=== PATIENT | female | born 1945 | race Hispanic/Latino ===

== ENCOUNTER 2016-09-15 15:06 | Observation (INO) | payer MEDICARE, BC ==
[2016-09-15 15:19] VITALS: BMI 23.8
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
[2016-09-15] MEDS ORDERED: Sodium Chloride 0.9% 1,000 ML IV STA (16:12)
[2016-09-15 17:11] LABS: ADD MANUAL DIFF? NO
[2016-09-15 17:20] LABS: BASO # 0.05 K/mm3 (0.0-2.0); EOS # 0.1 (0.0-0.7); EOS % 1.8 % (1.5-5.0); GRAN # 3.16 (1.4-6.5); HEMATOCRIT 42.1 % (36.0-48.0); LYMPH # 1.4 (1.2-3.4); LYMPH % 27.7 % (22.0-35.0); MEAN CELL VOLUME 91.5 fL (80.0-105.0); MEAN CORPUSCULAR HEMOGLOBIN 31.7 pg (25.0-35.0); MEAN CORPUSCULAR HGB CONC 34.7 g/dl (31.0-37.0); MEAN PLATELET VOLUME 9.4 fl (7.0-11.0); MONO # 0.4 (0.1-0.6); MONO % 7.5 % (1.0-6.0); PLATELET COUNT 330 10^3/uL (120.0-450.0); RED CELL DISTRIBUTION WIDTH 12.8 % (11.5-14.5); WHITE BLOOD COUNT 5.1 10^3/ul (4.5-11.0)
[2016-09-15 17:24] LABS: ALB/GLOB RATIO 1.5 (1.1-1.8); ALKALINE PHOSPHATASE 82 U/L (38-133); ALT/SGPT 37 U/L (7-56); AST/SGOT 28 U/L (15-39); BILIRUBIN,TOTAL 0.7 mg/dL (0.2-1.3); BLOOD UREA NITROGEN 12 mg/dL (7-21); CARBON DIOXIDE 29 mmol/L (21-33); CHLORIDE 106 mmol/L (98-107); GFR AFRICAN-AMERICAN > 60; GLUCOSE,RANDOM 137 mg/dL (70-110); POTASSIUM 4.6 mmol/L (3.6-5.0); SODIUM 143 mmol/L (132-148); TOTAL PROTEIN 7.8 g/dL (5.8-8.3)
[2016-09-15 19:01] LABS: PH,URINE 6.5 (4.7-8.0); URINE APPEARANCE CLEAR (CLEAR); URINE BILIRUBIN NEGATIVE (NEGATIVE); URINE BLOOD SMALL (NEGATIVE); URINE COLOR YELLOW (YELLOW); URINE GLUCOSE (UA) NEGATIVE (NEGATIVE); URINE KETONE NEGATIVE (NEGATIVE); URINE LEUKOCYTE ESTERASE SMALL Leu/uL (NEGATIVE); URINE PROTEIN NEGATIVE mg/dL (<30 mg/dL); URINE UROBILINOGEN 0.2 E.U./dL (<1 E.U./dL)
[2016-09-15 19:10] LABS: URINE RBC 0 - 2 /hpf (0-2); URINE WBC 0 - 2 /hpf (0-6)
[2016-09-15 19:16] LABS: FREE T4 0.86 ng/dL (0.78-2.19)
[2016-09-15 19:30] LABS: THYROID STIMULATING HORMONE 1.02 mIU/mL (0.46-4.68)
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
--- NOTE | 2016-09-15 19:47 | CT ---
EXAM: CT Head Without Intravenous Contrast CLINICAL HISTORY: 71 years old, female; Pain; Headache; Headache not specified; Additional info: Dizziness TECHNIQUE: Axial computed tomography images of the head/brain without intravenous contrast. This CT exam was performed using one or more of the following dose reduction techniques: automated exposure control, adjustment of the mA and/or kV according to patient size, and/or use of iterative reconstruction technique. EXAM DATE/TIME: 09/15/2016 5:33 PM COMPARISON: Prior head CT of 06/28/2015 FINDINGS: BRAIN: Tiny foci of air seen in the brain, just above the skull base. These are most likely located in the cavernous sinuses, and related to a recent intravenous injection or peripheral IV placement. This finding is not felt to be of clinical significance. Diffuse, age-related cortical atrophy and ventriculomegaly. No significant acute abnormality identified. No acute hemorrhage seen within the brain. No acute extra-axial fluid collections visualized. No evidence of significant mass effect within the brain. VENTRICLES: See above. BONES/JOINTS: No acute abnormality of the visualized bony structures identified. SOFT TISSUES: No acute abnormality of the visualized soft tissues is seen. SINUSES: Visualized paranasal sinuses appear clear. MASTOID AIR CELLS: Mastoid air cells appear clear. IMPRESSION: - No acute findings seen within the brain. - See above for remaining findings.
[2016-09-15] MEDS: Insulin Lispro (humaLOG) LOW Coverage SC SCH (22:29)
[2016-09-16] MEDS ORDERED: Pantoprazole 40 mg EC Tab PO SCH (07:30)
[2016-09-16 07:46] LABS: ADD MANUAL DIFF? NO; BASO # 0.04 K/mm3 (0.0-2.0); BASO % 0.9 % (0.0-3.0); EOS # 0.2 (0.0-0.7); EOS % 4.8 % (1.5-5.0); GRAN # 1.53 (1.4-6.5); HEMATOCRIT 38.9 % (36.0-48.0); LYMPH # 2.2 (1.2-3.4); LYMPH % 49.2 % (22.0-35.0); MEAN CELL VOLUME 91.5 fL (80.0-105.0); MEAN CORPUSCULAR HEMOGLOBIN 30.8 pg (25.0-35.0); MEAN CORPUSCULAR HGB CONC 33.7 g/dl (31.0-37.0); MEAN PLATELET VOLUME 9.4 fl (7.0-11.0); MONO # 0.4 (0.1-0.6); MONO % 10.1 % (1.0-6.0); PLATELET COUNT 313 10^3/uL (120.0-450.0); WHITE BLOOD COUNT 4.4 10^3/ul (4.5-11.0)
[2016-09-16 08:32] VITALS: BP 109/64; PULSE 86; RESP 20; TEMP 98.1; O2SAT 93
[2016-09-16 09:17] LABS: ALB/GLOB RATIO 1.5 (1.1-1.8); ALKALINE PHOSPHATASE 72 U/L (38-133); ALT/SGPT 36 U/L (7-56); AST/SGOT 22 U/L (15-39); BILIRUBIN,TOTAL 0.8 mg/dL (0.2-1.3); BLOOD UREA NITROGEN 12 mg/dL (7-21); CALCIUM 9.5 mg/dL (8.4-10.5); CARBON DIOXIDE 23 mmol/L (21-33); CHLORIDE 109 mmol/L (98-107); GFR AFRICAN-AMERICAN > 60; GLUCOSE,RANDOM 93 mg/dL (70-110); SODIUM 144 mmol/L (132-148); TOTAL PROTEIN 6.5 g/dL (5.8-8.3)
[2016-09-16] MEDS: Insulin Lispro (humaLOG) LOW Coverage SC SCH ×2 (09:18→12:00)
--- NOTE | 2016-09-16 14:26 | CARD ---
APPROVED REPORT EKG Measurement Heart [id number] IN [id number] <Conclusion> Normal sinus rhythm NSSTW changes Prolonged QTc
--- NOTE | 2016-09-16 15:36 | CP.PCM.DIS ---
<Rudy Ramírez - Last Filed: 09/16/16 15:39> Provider - Provider Date of Admission: 09/15/16 17:58 Attending physician: Simone Reynolds MD Primary care physician: Mik Leroy MD Consults: None Time Spent in preparation of Discharge (in minutes): 45 Hospital Course - Lab Results Lab Results: Most Recent Lab Values WBC 4.4 10^3/ul (4.5-11.0) L 09/16/16 05:00 RBC 4.25 10^6/uL (3.5-6.1) 09/16/16 05:00 Hgb 13.1 gm/dL (12.0-16.0) 09/16/16 05:00 Hct 38.9 % (36.0-48.0) 09/16/16 05:00 MCV 91.5 fL (80.0-105.0) 09/16/16 05:00 MCH 30.8 pg (25.0-35.0) 09/16/16 05:00 MCHC 33.7 g/dl (31.0-37.0) 09/16/16 05:00 RDW 13.0 % (11.5-14.5) 09/16/16 05:00 Plt Count 313 10^3/uL (120.0-450.0) 09/16/16 05:00 MPV 9.4 fl (7.0-11.0) 09/16/16 05:00 Gran % 35.0 % (50.0-68.0) L 09/16/16 05:00 Lymph % (Auto) 49.2 % (22.0-35.0) H 09/16/16 05:00 [place] % (Auto) 10.1 % (1.0-6.0) H 09/16/16 05:00 Eos % (Auto) 4.8 % (1.5-5.0) 09/16/16 05:00 Baso % (Auto) 0.9 % (0.0-3.0) 09/16/16 05:00 Gran # 1.53 (1.4-6.5) 09/16/16 05:00 Lymph # 2.2 (1.2-3.4) 09/16/16 05:00 [place] # 0.4 (0.1-0.6) 09/16/16 05:00 Eos # 0.2 (0.0-0.7) 09/16/16 05:00 Baso # 0.04 K/mm3 (0.0-2.0) 09/16/16 05:00 Sodium 144 mmol/L (132-148) 09/16/16 06:40 Potassium 4.0 mmol/L (3.6-5.0) 09/16/16 06:40 Chloride 109 mmol/L (98-107) H 09/16/16 06:40 Carbon Dioxide 23 mmol/L (21-33) 09/16/16 06:40 Anion Gap 16 (10-20) 09/16/16 06:40 BUN 12 mg/dL (7-21) 09/16/16 06:40 Creatinine 0.8 mg/dL (0.5-1.4) 09/16/16 06:40 Est GFR ( Amer) > 60 09/16/16 06:40 Est GFR (Non-Af Amer) > 60 09/16/16 06:40 POC Glucose (mg/dL) 139 mg/dL (65-110) H 09/16/16 11:34 Random Glucose 93 mg/dL (70-110) 09/16/16 06:40 Calcium 9.5 mg/dL (8.4-10.5) 09/16/16 06:40 Total Bilirubin 0.8 mg/dL (0.2-1.3) 09/16/16 06:40 AST 22 U/L (15-39) 09/16/16 06:40 ALT 36 U/L (7-56) 09/16/16 06:40 Alkaline Phosphatase 72 U/L (38-133) 09/16/16 06:40 Troponin I < 0.01 ng/mL 09/15/16 17:09 Total Protein 6.5 g/dL (5.8-8.3) 09/16/16 06:40 Albumin 3.9 g/dL (3.0-4.8) 09/16/16 06:40 Globulin 2.6 gm/dL 09/16/16 06:40 Albumin/Globulin Ratio 1.5 (1.1-1.8) 09/16/16 06:40 Free T4 0.86 ng/dL (0.78-2.19) 09/15/16 17:09 TSH 3rd Generation 1.02 mIU/mL (0.46-4.68) 09/15/16 17:09 Urine Color Yellow (YELLOW) 09/15/16 18:55 Urine Appearance Clear (CLEAR) 09/15/16 18:55 Urine pH 6.5 (4.7-8.0) 09/15/16 18:55 Ur Specific [place] <= 1.005 (1.005-1.035) 09/15/16 18:55 Urine Protein Negative mg/dL (<30 mg/dL) 09/15/16 18:55 Urine Glucose (UA) Negative mg/dL (NEGATIVE) 09/15/16 18:55 Urine Ketones Negative mg/dL (NEGATIVE) 09/15/16 18:55 Urine Blood Small (NEGATIVE) H 09/15/16 18:55 Urine Nitrate Negative (NEGATIVE) 09/15/16 18:55 Urine Bilirubin Negative (NEGATIVE) 09/15/16 18:55 Urine Urobilinogen 0.2 E.U./dL (<1 E.U./dL) 09/15/16 18:55 Ur Leukocyte Esterase Small Mitch/uL (NEGATIVE) H 09/15/16 18:55 Urine RBC 0 - 2 /hpf (0-2) 09/15/16 18:55 Urine WBC 0 - 2 /hpf (0-6) 09/15/16 18:55 - Hospital Course Hospital Course: Admit date- 09/15/16 DC date- 09/16/16 Attending: Dr. Gail Parra for dc Procedures- none DC diagnoses 1. UTI 2. Dizziness 3. CAD 4. HTN 5. DM No complications HPI: see h/p Labs: see lab data Hospital course This is a 71yo F admitted for dizziness Dizziness -resolving today -Head CT negative -Troponin negative; EKG NSR with no changes from prior -TSH/Free T4 WNL -Meclizine PRN, Zofran PRN, Toradol/Ibuprofen for headache and Valium at night Possible UTI - +LE and blood -will be discharged on PO vantin for 5 days DM -insulin sliding scale -patient is not on hypoglycemic at home HTN -c/w home meds -norvasc 10 daily CAD -Aspirin 81mg daily Prophylaxis -c/w home meds -SCDs -protonix 40 mg daily -Heart Healthy Diet DC instructions Please discharge pt home. Please return if condition worsens. Please take po vantin for 5 more days. DC meds 1. meclizine 25 mg po tid prn 2. vantin 100 q 12 for 5 days 3. norvasc 10 mg po daily 4. toprol 25 mg po daily 5. asa 81 mg po daily 6. nortriptyline 10 mg po hs 7. valium 5 mg po prn hs - Date & Time of H&P Date of H&P: 09/15/16 Time of H&P: 19:39 Discharge Exam - Head Exam Head Exam: ATRAUMATIC, NORMAL INSPECTION, NORMOCEPHALIC - Eye Exam Eye Exam: EOMI - ENT Exam ENT Exam: Mucous Membranes Moist - Neck Exam Neck exam: Full Rom, Normal Inspection - Respiratory Exam Respiratory Exam: NORMAL BREATHING PATTERN, UNREMARKABLE - Cardiovascular Exam Cardiovascular Exam: +S1, +S2 - GI/Abdominal Exam GI & Abdominal Exam: Normal Bowel Sounds - Extremities Exam Extremities exam: full ROM, normal inspection - Neurological Exam Neurological exam: Alert, CN II-XII Intact, Oriented x3 - Psychiatric Exam Psychiatric exam: Normal Affect, Normal Mood - Skin Skin Exam: Dry, Intact, Normal Color, Warm Discharge Plan - Discharge Medications Prescriptions: Cefpodoxime [Vantin] 100 mg PO Q12 #10 tab Meclizine [Meclizine*] 25 mg PO TID PRN #90 tab PRN Reason: Vertigo - Follow Up Plan Condition: STABLE Disposition: HOME/ ROUTINE Instructions: Pancreatitis (DC), Dizziness (GEN) Additional Instructions: Continue to take all home medications and new prescriptions as prescribed, report to the ED for recurrent or worsening symptoms, follow up with your primary doctor in one week. Referrals: Mik Leroy MD [Primary Care Provider] - <Simone Reynolds - Last Filed: 09/17/16 09:35> Provider - Provider Date of Admission: 09/15/16 17:58 Attending physician: Simone Reynolds MD Primary care physician: Mik Leroy MD Hospital Course - Lab Results Lab Results: Micro Results 09/15/16 18:58 Urine,Clean Catch Urine Culture - Final 10-50,000 CFU/ML. MULTIPLE SPECIES. PROBABLE CONTAMINATION. Most Recent Lab Values WBC 4.4 10^3/ul (4.5-11.0) L 09/16/16 05:00 RBC 4.25 10^6/uL (3.5-6.1) 09/16/16 05:00 Hgb 13.1 gm/dL (12.0-16.0) 09/16/16 05:00 Hct 38.9 % (36.0-48.0) 09/16/16 05:00 MCV 91.5 fL (80.0-105.0) 09/16/16 05:00 MCH 30.8 pg (25.0-35.0) 09/16/16 05:00 MCHC 33.7 g/dl (31.0-37.0) 09/16/16 05:00 RDW 13.0 % (11.5-14.5) 09/16/16 05:00 Plt Count 313 10^3/uL (120.0-450.0) 09/16/16 05:00 MPV 9.4 fl (7.0-11.0) 09/16/16 05:00 Gran % 35.0 % (50.0-68.0) L 09/16/16 05:00 Lymph % (Auto) 49.2 % (22.0-35.0) H 09/16/16 05:00 [place] % (Auto) 10.1 % (1.0-6.0) H 09/16/16 05:00 Eos % (Auto) 4.8 % (1.5-5.0) 09/16/16 05:00 Baso % (Auto) 0.9 % (0.0-3.0) 09/16/16 05:00 Gran # 1.53 (1.4-6.5) 09/16/16 05:00 Lymph # 2.2 (1.2-3.4) 09/16/16 05:00 [place] # 0.4 (0.1-0.6) 09/16/16 05:00 Eos # 0.2 (0.0-0.7) 09/16/16 05:00 Baso # 0.04 K/mm3 (0.0-2.0) 09/16/16 05:00 Sodium 144 mmol/L (132-148) 09/16/16 06:40 Potassium 4.0 mmol/L (3.6-5.0) 09/16/16 06:40 Chloride 109 mmol/L (98-107) H 09/16/16 06:40 Carbon Dioxide 23 mmol/L (21-33) 09/16/16 06:40 Anion Gap 16 (10-20) 09/16/16 06:40 BUN 12 mg/dL (7-21) 09/16/16 06:40 Creatinine 0.8 mg/dL (0.5-1.4) 09/16/16 06:40 Est GFR ( Amer) > 60 09/16/16 06:40 Est GFR (Non-Af Amer) > 60 09/16/16 06:40 POC Glucose (mg/dL) 139 mg/dL (65-110) H 09/16/16 11:34 Random Glucose 93 mg/dL (70-110) 09/16/16 06:40 Calcium 9.5 mg/dL (8.4-10.5) 09/16/16 06:40 Total Bilirubin 0.8 mg/dL (0.2-1.3) 09/16/16 06:40 AST 22 U/L (15-39) 09/16/16 06:40 ALT 36 U/L (7-56) 09/16/16 06:40 Alkaline Phosphatase 72 U/L (38-133) 09/16/16 06:40 Troponin I < 0.01 ng/mL 09/15/16 17:09 Total Protein 6.5 g/dL (5.8-8.3) 09/16/16 06:40 Albumin 3.9 g/dL (3.0-4.8) 09/16/16 06:40 Globulin 2.6 gm/dL 09/16/16 06:40 Albumin/Globulin Ratio 1.5 (1.1-1.8) 09/16/16 06:40 Free T4 0.86 ng/dL (0.78-2.19) 09/15/16 17:09 TSH 3rd Generation 1.02 mIU/mL (0.46-4.68) 09/15/16 17:09 Urine Color Yellow (YELLOW) 09/15/16 18:55 Urine Appearance Clear (CLEAR) 09/15/16 18:55 Urine pH 6.5 (4.7-8.0) 09/15/16 18:55 Ur Specific [place] <= 1.005 (1.005-1.035) 09/15/16 18:55 Urine Protein Negative mg/dL (<30 mg/dL) 09/15/16 18:55 Urine Glucose (UA) Negative mg/dL (NEGATIVE) 09/15/16 18:55 Urine Ketones Negative mg/dL (NEGATIVE) 09/15/16 18:55 Urine Blood Small (NEGATIVE) H 09/15/16 18:55 Urine Nitrate Negative (NEGATIVE) 09/15/16 18:55 Urine Bilirubin Negative (NEGATIVE) 09/15/16 18:55 Urine Urobilinogen 0.2 E.U./dL (<1 E.U./dL) 09/15/16 18:55 Ur Leukocyte Esterase Small [place]/uL (NEGATIVE) H 09/15/16 18:55 Urine RBC 0 - 2 /hpf (0-2) 09/15/16 18:55 Urine WBC 0 - 2 /hpf (0-6) 09/15/16 18:55 Attending/Attestation - Attestation I have personally seen and examined this patient.: Yes I have fully participated in the care of the patient.: Yes I have reviewed all pertinent clinical information, including history, physical exam and plan: Yes Notes (Text): 09/16/16 71 year old female with past medical history of hypertension and diabetes who presented with complaint of dizziness. Symptoms improved after one dose of meclizine in ER. She was admitted for observation. CT head did not find any acute findings. She was started on po vantin for UTI. Patient is discharged home to follow up with her pmd. She follows up with ENT as well. Continue with home medications. Continue with po antibiotics as above. Simone Reynolds MD Hospitalist.
[2016-09-16] MEDS ORDERED: Metoprolol Succinate 25 mg XL Tab PO SCH (18:00)
== END 2016-09-16 17:23 | disposition home or self-care (01) ==
LOC: ED 15:06 → ERH 17:58 → 3RSO 21:00
PROVIDERS: ADMIT Internal Medicine; ATTEND Internal Medicine
DX: R42 Dizziness and giddiness (principal); N39.0 Urinary tract infection, site not specified; I25.10 Atherosclerotic heart disease of native coronary artery without angina pectoris; I10 Essential (primary) hypertension; E11.9 Type 2 diabetes mellitus without complications; Z79.82 Long term (current) use of aspirin; Z87.891 Personal history of nicotine dependence
CPT/HCPCS: 36415; 70450; 80053; 81001; 82948; 84439; 84443; 84484; 85025; 87086; 93005; 96374; 99285; G0378; J7040

== ENCOUNTER 2017-05-06 14:40 | Observation (INO) | payer MEDICARE, BC ==
[2017-05-06] MEDS ORDERED: Sodium Chloride 0.9% 1,000 ML IV STA (16:04)
--- NOTE | 2017-05-06 16:07 | ED PDOC ---
Arrival/HPI - General Chief Complaint: Back Pain Time Seen by Provider: 05/06/17 15:39 Historian: Patient - History of Present Illness Narrative History of Present Illness (Text): 05/06/17 16:04 A 72 year old female, whose past medical history includes diabetes, hypertension and kidney stones, presents to the emergency department complaining of right sided flank pain. Patient notes nausea and 1 episode of loose stool today. Patient denies any trauma, fever, chills, vomiting, abdominal pain, chest pain, shortness of breath or any other complaints. PMD: Dr. Leroy Past Medical History - Provider Review Nursing Documentation Reviewed: Yes - Infectious Disease Hx of Infectious Diseases: MRSA - Tetanus Immunization Tetanus Immunization: Unknown - Cardiac Hx Cardiac Disorders: Yes Hx Hypertension: Yes Hx Pacemaker: No - Pulmonary Hx Respiratory Disorders: Yes Hx Asthma: Yes Hx Chronic Obstructive Pulmonary Disease (COPD): Yes Hx Emphysema: Yes - Neurological Hx Neurological Disorder: Yes Hx Migraine: Yes - HEENT Hx HEENT Disorder: Yes Other/Comment: THROAT POLYPS 2009 - Renal Hx Renal Disorder: Yes Hx Kidney Stones: Yes - Endocrine/Metabolic Hx Endocrine Disorders: Yes Hx Diabetes Mellitus Type 2: Yes - Hematological/Oncological Hx Blood Transfusions: No Hx Blood Transfusion Reaction: No - Integumentary Hx Dermatological Disorder: Yes Other/Comment: MRSA - Musculoskeletal/Rheumatological Hx Musculoskeletal Disorders: Yes Hx Back Pain: Yes (Chronic) Hx Degenerative Joint Disease: Yes Hx Falls: No - Gastrointestinal Hx Gastrointestinal Disorders: Yes Hx Gastroesophageal Reflux: Yes - Genitourinary/Gynecological Other/Comment: D&C 2009 - Psychiatric Hx Psychophysiologic Disorder: Yes Hx Anxiety: Yes Hx Depression: Yes Hx Emotional Abuse: No Hx Physical Abuse: No Hx Substance Use: No - Past Surgical History Past Surgical History: Unable to Obtain - Surgical History Hx Cardiac Catheterization: Yes (No stents) Hx Cholecystectomy: Yes Other/Comment: Multiple epidurals for back pain - Anesthesia Hx Anesthesia: Yes Hx Anesthesia Reactions: Yes (NAUSEA- REQUESTING MEDICATION PRIOR TO PROCEDURE) Hx Malignant Hyperthermia: No - Suicidal Assessment Feels Threatened In Home Enviroment: No Family/Social History - Physician Review Nursing Documentation Reviewed: Yes Family/Social History: No Known Family HX Smoking Status: Former Smoker Hx Alcohol Use: No Hx Substance Use: No Hx Substance Use Treatment: No Allergies/Home Meds Allergies/Adverse Reactions: Allergies linezolid [From Zyvox] Allergy (Severe, Verified 05/06/17 14:43) TONGUE SWELLS levofloxacin [From Levaquin] Allergy (Intermediate, Verified 05/06/17 14:43) PAIN/ITCHING sulfamethoxazole [From Bactrim] Allergy (Intermediate, Verified 05/06/17 14:43) PAIN/ ITCHING trimethoprim [From Bactrim] Allergy (Intermediate, Verified 05/06/17 14:43) PAIN/ ITCHING Home Medications: Home Meds Medication Instructions Recorded Confirmed Metoprolol Succinate 25 mg PO QPM 12/19/14 05/06/17 diaZEpam [Valium] 5 mg PO HS PRN 06/05/15 05/06/17 Aspirin [Aspirin Chewable] 81 mg PO DAILY 09/15/16 05/06/17 metFORMIN [glucOPHAGE] 500 mg PO BID 05/06/17 05/06/17 Review of Systems - Physician Review All systems were reviewed & negative as marked: Yes - Review of Systems Constitutional: absent: Fevers, Night Sweats Respiratory: absent: SOB Cardiovascular: absent: Chest Pain Gastrointestinal: Stool Changes (1 episode of loose stool), Nausea. absent: Abdominal Pain, Vomiting Musculoskeletal: Back Pain (right flank pain) Physical Exam Vital Signs Reviewed: Yes Vital Signs Temp Pulse Resp BP Pulse Ox 05/06/17 22:33 98.6 F 74 24 110/58 L 97 05/06/17 19:15 71 16 133/75 99 05/06/17 18:10 17 133/66 98 05/06/17 17:01 78 17 147/78 99 05/06/17 14:44 97.7 F 92 H 16 142/75 96 Temperature: Afebrile Blood Pressure: Normal Pulse: Tachycardic Respiratory Rate: Normal Appearance: Positive for: Well-Appearing, Non-Toxic, Comfortable Pain Distress: None Mental Status: Positive for: Alert and Oriented X 3 - Systems Exam Head: Present: Atraumatic, Normocephalic Pupils: Present: PERRL Extroacular Muscles: Present: EOMI Conjunctiva: Present: Normal Mouth: Present: Moist Mucous Membranes Neck: Present: Normal Range of Motion Respiratory/Chest: Present: Clear to Auscultation, Good Air Exchange. No: Respiratory Distress, Accessory Muscle Use Cardiovascular: Present: Regular Rate and Rhythm, Normal S1, S2. No: Murmurs Abdomen: Present: Normal Bowel Sounds. No: Tenderness, Distention, Peritoneal Signs Back: Present: CVA Tenderness (Right sided) Upper Extremity: Present: Normal Inspection. No: Cyanosis, Edema Lower Extremity: Present: Normal Inspection. No: Edema Neurological: Present: GCS=15, CN II-XII Intact, Speech Normal Skin: Present: Warm, Dry, Normal Color. No: Rashes Psychiatric: Present: Alert, Oriented x 3, Normal Insight, Normal Concentration Medical Decision Making ED Course and Treatment: 05/06/17 16:04 Impression: A 72 year old female with right flank pain. Differential Diagnosis included but are not limited to: Musculoskeletal vs. Kidney stone Plan: -- Abdomen and pelvis CT -- Labs -- Urine culture and Urinalysis -- Tylenol, Toradol, Zofran, IV fluids and Flomax -- Reassess and disposition Progress Notes: Report Date: 05/06/17 20:55 EXAM: CT Abdomen and Pelvis Without Intravenous Contrast Dictated and Authenticated by: Leonie Matos MD IMPRESSION: 4.3 mm obstructing distal right ureteral stone, no renal stones; prominent common duct status post cholecystectomy; no CT findings of appendicitis or diverticulitis; probable mild ileus 05/06/17 21:42 Patient was treated with Morphine with no relief. Then treated with Lidocaine drip with improvement of symptoms but she was still have some pain. She also had a bowel movement she states which helped her symptoms. Case discussed with Dr. Pinedo, who states to administer Rocephin prophylactically and NPO past midnight. States he will perform procedure in the morning. Case discussed with Dr. Rios who will admit the patient to the hospitalist service. - Lab Interpretations Microbiology Results: Microbiology Results 05/06/17 16:53 Urine Urine Culture - Final No Growth (<1,000 CFU/ML) Lab Results: 05/06/17 16:00 05/06/17 19:20 Lab Results 05/06/17 19:20: Potassium 5.1 H 05/06/17 16:53: Urine Color Yellow, Urine Appearance Sl cloudy, Urine pH 5.5, Ur Specific [place] >= 1.030, Urine Protein 30 H, Urine Glucose (UA) Negative, Urine Ketones Trace H, Urine Blood Large H, Urine Nitrate Negative, Urine Bilirubin Negative, Urine Urobilinogen 0.2, Ur Leukocyte Esterase Negative, Urine RBC Tntc, Urine WBC 0 - 2, Ur Epithelial Cells 0 - 2 05/06/17 16:00: Sodium 140, Potassium 5.1 H, Chloride 103, Carbon Dioxide 26, Anion Gap 16, BUN 14, Creatinine 0.8, Est GFR ( Amer) > 60, Est GFR (Non- Af Amer) > 60, Random Glucose 131 H, Calcium 10.5, Total Bilirubin 0.5, AST 24, ALT 35, Alkaline Phosphatase 48, Total Protein 7.1, Albumin 4.3, Globulin 2.8, Albumin/Globulin Ratio 1.6 05/06/17 16:00: WBC 7.1 D, RBC 4.45, Hgb 13.7, Hct 42.2, MCV 94.8, MCH 30.8, MCHC 32.5, RDW 13.6, Plt Count 361, MPV 9.8, Gran % 71.6 H, Lymph % (Auto) 20.3 L, Real % (Auto) 6.1 H, Eos % (Auto) 1.4 L, Baso % (Auto) 0.6, Gran # 5.09, Lymph # 1.4, Real # 0.4, Eos # 0.1, Baso # 0.04 I have reviewed the lab results: Yes - RAD Interpretation Radiology Orders: 05/06/17 16:04 ABD & PELVIS W/O PO OR IV CONT [CT] Stat - Medication Orders Current Medication Orders: Discontinued Medications Acetaminophen (Tylenol 325mg Tab) 975 mg PO STAT STA Stop: 05/06/17 16:06 Last Admin: 05/06/17 16:16 Dose: 975 mg Diazepam (Valium) 5 mg PO HS PRN; Protocol PRN Reason: Sleep Hydromorphone HCl (Dilaudid) 0.5 mg IVP Q15M PRN PRN Reason: Pain, moderate (4-7) Stop: 05/07/17 13:44 Sodium Chloride (Sodium Chloride 0.9%) 1,000 mls @ 100 mls/hr IV .Q10H STA Stop: 05/07/17 02:03 Last Admin: 05/06/17 16:15 Dose: 100 mls/hr eMAR Start Stop Document 05/06/17 16:15 SF (Rec: 05/06/17 16:16 SF [id number]) Intravenous Solution Start Date 05/06/17 Start Time 16:16 End Date 05/06/17 Lidocaine 76 mg/ Sodium (Chloride) 103.8 mls @ 622.8 mls/hr IV STAT STA Stop: 05/06/17 21:02 Last Admin: 05/06/17 21:46 Dose: 622.8 mls/hr eMAR Start Stop Document 05/06/17 21:46 CNR (Rec: 05/06/17 21:46 CNR [id number]) Intravenous Solution Start Date 05/06/17 Start Time 21:46 End Date 05/06/17 End time 21:56 Total Infusion Time 10 Ceftriaxone Sodium (Rocephin 1 Gram Ivpb) 1 gm in 100 mls @ 200 mls/hr IVPB STAT STA PRN Reason: Protocol Stop: 05/06/17 22:11 Last Admin: 05/06/17 22:21 Dose: 200 mls/hr eMAR Start Stop Document 05/06/17 22:21 CNR (Rec: 05/06/17 22:21 CNR [id number]) Intravenous Solution Start Date 05/06/17 Start Time 22:21 Sodium Chloride (Sodium Chloride 0.9%) 1,000 mls @ 100 mls/hr IV .Q10H ADRIAN Last Admin: 05/06/17 23:56 Dose: 100 mls/hr eMAR Start Stop Document 05/06/17 23:56 BR (Rec: 05/06/17 23:[address]) Intravenous Solution Start Date 05/06/17 Start Time 23:56 Lactated Ringer's (Lactated Ringer's) 1,000 mls @ 75 mls/hr IV .[id number] ADRIAN Stop: 05/07/17 13:46 Insulin Human Regular (Humulin R Low) 0 units SC ACHS ADRIAN PRN Reason: Protocol Last Admin: 05/07/17 09:13 Dose: Not Given Non-Admin Reason: Blood Sugar Parameter Ketorolac Tromethamine (Toradol) 15 mg IVP STAT STA Stop: 05/06/17 16:06 Last Admin: 05/06/17 16:17 Dose: 15 mg MAR Pain Assessment Document 05/06/17 16:17 SF (Rec: 05/06/17 16:17 SF [id number]) Pain Reassessment Is this a pain reassessment? Yes Sleep Is patient sleeping during reassessment? No Presence of Pain Presence of Pain Yes Pain Scale Used Pain Scale Used Numeric Location Left, Right or Bilateral Right Upper or Lower Lower Pain Location Body Site Back Description Description Constant IVP Administration Document 05/06/17 16:17 SF (Rec: 05/06/17 16:17 SF [id number]) Charges for Administration # of IVP Administrations 1 Ketorolac Tromethamine (Toradol) 15 mg IVP Q6H PRN PRN Reason: Pain, severe (8-10) Stop: 05/08/17 22:01 Last Admin: 05/07/17 14:57 Dose: 15 mg MAR Pain Assessment Document 05/07/17 14:57 LMN (Rec: 05/07/17 14:58 LMN [id number]) Pain Reassessment Is this a pain reassessment? No Presence of Pain Presence of Pain Yes Pain Scale Used Pain Scale Used Numeric Description Description Intermittent Pain Behavior Irritability Restlessness Alleviating Factors/Management Medication Techniques IVP Administration Document 05/07/17 14:57 LMN (Rec: 05/07/17 14:58 LMN [id number]) Charges for Administration # of IVP Administrations 1 Meclizine HCl (Antivert) 25 mg PO TID PRN PRN Reason: Vertigo Metoclopramide HCl (Reglan) 10 mg IVP Q6H PRN PRN Reason: Nausea/Vomiting Metoprolol Succinate (Toprol Xl) 25 mg PO QPM ADRIAN Morphine Sulfate (Morphine) 4 mg IVP STAT STA Stop: 05/06/17 17:33 Last Admin: 05/06/17 18:16 Dose: 4 mg MAR Pain Assessment Document 05/06/17 18:16 SF (Rec: 05/06/17 18:16 SF [id number]) Pain Reassessment Is this a pain reassessment? Yes Sleep Is patient sleeping during reassessment? No Presence of Pain Presence of Pain Yes Pain Scale Used Pain Scale Used Numeric IVP Administration Document 05/06/17 18:16 SF (Rec: 05/06/17 18:16 SF [id number]) Charges for Administration # of IVP Administrations 1 Morphine Sulfate (Morphine) 4 mg IVP STAT STA Stop: 05/06/17 20:50 Last Admin: 05/06/17 21:03 Dose: Not Given Non-Admin Reason: Patient Refused Ondansetron HCl (Zofran Inj) 4 mg IVP STAT STA Stop: 05/06/17 16:05 Last Admin: 05/06/17 16:16 Dose: 4 mg IVP Administration Document 05/06/17 16:16 SF (Rec: 05/06/17 16:16 [id number]) Charges for Administration # of IVP Administrations 1 Ondansetron HCl (Zofran Inj) 4 mg IVP STAT STA Stop: 05/06/17 17:33 Last Admin: 05/06/17 18:16 Dose: 4 mg IVP Administration Document 05/06/17 18:16 SF (Rec: 05/06/17 18:16 SF [id number]) Charges for Administration # of IVP Administrations 1 Pantoprazole Sodium (Protonix Inj) [address] [facility] Last Admin: 05/07/17 09:44 Dose: 40 mg IVP Administration Document 05/07/17 09:44 LMN (Rec: 05/07/17 09:44 LMN [id number]) Charges for Administration # of IVP Administrations 1 Pneumococcal Polyvalent Vaccine (Pneumovax 23 Vaccine) 0.5 ml IM .ONCE ONE Stop: 05/07/17 03:04 Sodium Polystyrene Sulfonate (Kayexalate Susp) 30 gm PO STAT STA Stop: 05/06/17 16:51 Last Admin: 05/06/17 17:15 Dose: 30 gm Tamsulosin HCl (Flomax) 0.4 mg PO STAT STA Stop: 05/06/17 16:07 Last Admin: 05/06/17 16:16 Dose: 0.4 mg Tamsulosin HCl (Flomax) 0.[address] [facility] Last Admin: 05/07/17 09:44 Dose: 0.4 mg - Scribe Statement The provider has reviewed the documentation as recorded by the Ortiz Landa Provider Scribe Attestation: All medical record entries made by the Scribe were at my direction and personally dictated by me. I have reviewed the chart and agree that the record accurately reflects my personal performance of the history, physical exam, medical decision making, and the department course for this patient. I have also personally directed, reviewed, and agree with the discharge instructions and disposition. Disposition/Present on Arrival - Present on Arrival Any Indicators Present on Arrival: No History of DVT/PE: No History of Uncontrolled Diabetes: No Urinary Catheter: No History of Decub. Ulcer: No History Surgical Site Infection Following: None - Disposition Have Diagnosis and Disposition been Completed?: Yes Diagnosis: Renal colic Disposition: HOSPITALIZED Disposition Time: 21:03 Patient Plan: Admission Condition: FAIR
[2017-05-06 16:44] LABS: ALB/GLOB RATIO 1.6 (1.1-1.8); ALBUMIN 4.3 g/dL (3.0-4.8); ALT/SGPT 35 U/L (7-56); AST/SGOT 24 U/L (14-36); BLOOD UREA NITROGEN 14 mg/dL (7-21); CALCIUM 10.5 mg/dL (8.4-10.5); GFR AFRICAN-AMERICAN > 60; GFR NON-AFRICAN AMERICAN > 60
[2017-05-06] MEDS ORDERED: Sod Polystyrene Sulf 15 gm/60 ml Susp PO STA (16:50)
[2017-05-06 16:55] LABS: BASO # 0.04 K/mm3 (0.0-2.0); BASO % 0.6 % (0.0-3.0); EOS # 0.1 (0.0-0.7); EOS % 1.4 % (1.5-5.0); GRAN # 5.09 (1.4-6.5); GRAN % 71.6 % (50.0-68.0); HEMOGLOBIN 13.7 g/dL (12.0-16.0); LYMPH # 1.4 (1.2-3.4); LYMPH % 20.3 % (22.0-35.0); MEAN CELL VOLUME 94.8 fl (80.0-105.0); MEAN CORPUSCULAR HEMOGLOBIN 30.8 pg (25.0-35.0); MEAN CORPUSCULAR HGB CONC 32.5 g/dl (31.0-37.0); MEAN PLATELET VOLUME 9.8 fl (7.0-11.0); MONO # 0.4 (0.1-0.6); MONO % 6.1 % (1.0-6.0); RBC 4.45 10^6/uL (3.5-6.1); RED CELL DISTRIBUTION WIDTH 13.6 % (11.5-14.5); WHITE BLOOD COUNT 7.1 10^3/ul (4.5-11.0)
[2017-05-06 17:22] LABS: PH,URINE 5.5 (4.7-8.0); URINE BILIRUBIN NEGATIVE (NEGATIVE); URINE BLOOD LARGE (NEGATIVE); URINE GLUCOSE (UA) NEGATIVE (NEGATIVE); URINE LEUKOCYTE ESTERASE NEGATIVE Leu/uL (NEGATIVE); URINE NITRATE NEGATIVE (NEGATIVE); URINE PROTEIN 30 mg/dL (<30 mg/dL); URINE UROBILINOGEN 0.2 E.U./dL (<1 E.U./dL)
[2017-05-06 17:27] LABS: URINE APPEARANCE SL CLOUDY (CLEAR); URINE COLOR YELLOW (YELLOW)
[2017-05-06] MEDS ORDERED: Morphine 4 mg/ml ISec IVP STA (17:32)
[2017-05-06 17:39] LABS: URINE EPITHELIAL CELLS 0 - 2 /hpf (0-5); URINE RBC TNTC /hpf (0-2); URINE WBC 0 - 2 /hpf (0-6)
[2017-05-06] MEDS ORDERED: Morphine 5 MG/ML SYRINGE IVP STA (20:49)
--- NOTE | 2017-05-06 20:55 | CT ---
EXAM: CT Abdomen and Pelvis Without Intravenous Contrast EXAM DATE/TIME: 05/06/2017 4:04 PM CLINICAL HISTORY: 72 years old, female; Pain; Abdominal pain; Flank; Right; Prior surgery; Surgery type: Cholecystectomy; Additional info: Right flank pain R/O kidney stones TECHNIQUE: Axial computed tomography images of the abdomen and pelvis without intravenous contrast. All CT scans at this facility use one or more dose reduction techniques, viz.: automated exposure control; ma/kV adjustment per patient size (including targeted exams where dose is matched to indication; i.e. head); or iterative reconstruction technique. Coronal and sagittal reformatted images were created and reviewed. COMPARISON: There are no prior studies for comparison. FINDINGS: Lower thorax: The lung bases are hyperinflated. Heart size is normal. There are coronary artery calcifications. There is a small hiatal hernia. There is atelectasis/scarring at the lung bases ABDOMEN: Liver: unremarkable Gallbladder and bile ducts: Gallbladder is absent. Common duct is mildly prominent. Pancreas: Pancreas is mildly atrophic. Spleen: unremarkable Adrenals: unremarkable Kidneys and ureters: Left kidney and ureter are unremarkable.There is obstructive uropathy on the right. There is a 4.3 mm obstructing stone at the right ureterovesical junction. Stomach and bowel: Stomach is almost empty. Rotation is normal. Proximal small bowel is mildly distended. There is fluid and air throughout the small bowel. There is no small bowel obstruction. Ileocecal region is unremarkable. Appendix and terminal ileum are unremarkable. Colon is incompletely distended which limits evaluation. There is scattered diverticulosis Appendix: See stomach and bowel PELVIS: Bladder: unremarkable Reproductive: Uterus is atrophic. Adnexa are unremarkable. ABDOMEN and PELVIS: Intraperitoneal space:There is no free air or free fluid. Bones/joints: Bony structures are osteopenic. There are degenerative changes. Soft tissues: There is a small fat containing umbilical hernia. Vasculature: There are vascular calcifications. There are calcified phleboliths. Lymph nodes: There is no pathologic adenopathy. IMPRESSION: 4.3 mm obstructing distal right ureteral stone, no renal stones; prominent common duct status post cholecystectomy; no CT findings of appendicitis or diverticulitis; probable mild ileus
[2017-05-06] MEDS ORDERED: SODIUM CHLORIDE 0.9% IV STA (21:01)
[2017-05-06] MEDS ORDERED: LIDOCAINE IV STA (21:01)
[2017-05-06] MEDS ORDERED: cefTRIAXone 1 gm 1 GM/100 ML BAG IVPB STA (21:42)
--- NOTE | 2017-05-06 22:23 | CP.PCM.HP ---
<Fransisco Mcclendon - Last Filed: 05/07/17 03:09> History of Present Illness - History of Present Illness History of Present Illness: Chief complaint: Right sided flank pain, associated with nausea and diarrhea HPI: Patient is a 72 yo female who presents to ED with complaints of right sided flank pain. Patient has a past medical history of NIDDM, hypertension, colitis, and Nephrolithiasis. She states that her pain begain around 11am and came on suddenly. It is localized to her right flank and is constant in nature with new onset radiation to the right groin. She rates it as 10/10 severity.Patient states initially pain was similar to her previous episodes of nephrolithiasis however throughout the course of the day pain became unbearable unlike her previous episodes. She has associated nausea and diarrhea. She denies fever, chills, CP, and SOB. She has a 30 pack year history of smoking but denies alcohol and elicit drug use. She has a family history of colon cancer in her mother, brother, aunts, and uncles. Her surgical history is composed of a cholecystectomy, nasal polpectomy, ablations x4. PMHx: hypertension, coronary artery disease w/ no Stents but documented blockage , DM controlled with Metformin, Vertigo Medications: Please refer to [facility] Allergies: Linezolid, Levofloxacin, Bactrim Surgeries: Cath 2015 Social: lives at home, retired, good social support network; Smokes E-Cigarettes ; used to be daily smoker 1ppd/30 years. Denies EtOH or other illicit drugs. Present on Admission - Present on Admission Any Indicators Present on Admission: No Review of Systems - Constitutional Constitutional: absent: Chills, Fever, Headache - EENT Eyes: absent: Blurred Vision, Change in Vision, Loss of Vision Ears: absent: Dizziness - Cardiovascular Cardiovascular: absent: Chest Pain, Chest Pain at Rest - Respiratory Respiratory: absent: Cough, Dyspnea - Gastrointestinal Gastrointestinal: absent: Abdominal Pain, Diarrhea, Nausea, Vomiting - Genitourinary Genitourinary: Dysuria, Urinary Frequency - Musculoskeletal Musculoskeletal: Back Pain - Neurological Neurological: absent: Dizziness, Numbness - Psychiatric Psychiatric: absent: Anxiety, Depression - Endocrine Endocrine: absent: Fatigue, Polyuria Past Patient History - Infectious Disease Hx of Infectious Diseases: MRSA - Tetanus Immunizations Tetanus Immunization: Unknown - Past Social History Smoking Status: Former Smoker - CARDIAC Hx Cardiac Disorders: Yes Hx Hypertension: Yes Hx Pacemaker: No - PULMONARY Hx Respiratory Disorders: Yes Hx Asthma: Yes Hx Chronic Obstructive Pulmonary Disease (COPD): Yes Hx Emphysema: Yes - NEUROLOGICAL Hx Neurological Disorder: Yes Hx Migraine: Yes - HEENT Hx HEENT Problems: Yes Other/Comment: THROAT POLYPS 2009 - RENAL Hx Chronic Kidney Disease: Yes Hx Kidney Stones: Yes - ENDOCRINE/METABOLIC Hx Endocrine Disorders: Yes Hx Diabetes Mellitus Type 2: Yes - HEMATOLOGICAL/ONCOLOGICAL Hx Blood Transfusions: No Hx Blood Transfusion Reaction: No - INTEGUMENTARY Hx Dermatological Problems: Yes Other/Comment: MRSA - MUSCULOSKELETAL/RHEUMATOLOGICAL Hx Musculoskeletal Disorders: Yes Hx Back Pain: Yes (Chronic) Hx Degenerative Joint Disease: Yes Hx Falls: No - GASTROINTESTINAL Hx Gastrointestinal Disorders: Yes Hx Gastroesophageal Reflux: Yes - GENITOURINARY/GYNECOLOGICAL Other/Comment: D&C 2009 - PSYCHIATRIC Hx Psychophysiologic Disorder: Yes Hx Anxiety: Yes Hx Depression: Yes Hx Emotional Abuse: No Hx Physical Abuse: No Hx Substance Use: No - SURGICAL HISTORY Hx Cardiac Catheterization: Yes (No stents) Hx Cholecystectomy: Yes Other/Comment: Multiple epidurals for back pain - ANESTHESIA Hx Anesthesia: Yes Hx Anesthesia Reactions: Yes (NAUSEA- REQUESTING MEDICATION PRIOR TO PROCEDURE) Hx Malignant Hyperthermia: No Meds Allergies/Adverse Reactions: Allergies Allergy/AdvReac Type Severity Reaction Status Date / Time linezolid [From Zyvox] Allergy Severe TONGUE Verified 05/06/17 14:43 SWELLS levofloxacin [From Levaquin] Allergy Intermediate PAIN/ITCHIN Verified 05/06/17 14:43 G sulfamethoxazole Allergy Intermediate PAIN/ Verified 05/06/17 14:43 [From Bactrim] ITCHING trimethoprim [From Bactrim] Allergy Intermediate PAIN/ Verified 05/06/17 14:43 ITCHING Physical Exam - Head Exam Head Exam: ATRAUMATIC, NORMAL INSPECTION, NORMOCEPHALIC - Eye Exam Eye Exam: EOMI, Normal appearance - ENT Exam ENT Exam: Mucous Membranes Moist, Normal Exam - Neck Exam Neck exam: Positive for: Normal Inspection - Respiratory Exam Respiratory Exam: Clear to Auscultation Bilateral, NORMAL BREATHING PATTERN. absent: Rhonchi, Wheezes - Cardiovascular Exam Cardiovascular Exam: REGULAR RHYTHM. absent: +S1, +S2 - GI/Abdominal Exam GI & Abdominal Exam: Normal Bowel Sounds, Soft - Back Exam Back exam: CVA tenderness (R). absent: paraspinal tenderness, rash noted, vertebral tenderness - Neurological Exam Neurological exam: Alert, CN II-XII Intact, Oriented x3 - Psychiatric Exam Psychiatric exam: Normal Affect, Normal Mood - Skin Skin Exam: Intact, Normal Color, Warm Results - Vital Signs Recent Vital Signs: Last Vital Signs Temp 97.7 F 05/06/17 14:44 Pulse 71 05/06/17 19:15 Resp 16 05/06/17 19:15 BP 133/75 05/06/17 19:15 Pulse Ox 99 05/06/17 19:15 - Labs Result Diagrams: 05/06/17 16:00 05/06/17 19:20 Labs: Laboratory Results - last 24 hr 05/06/17 05/06/17 05/06/17 16:00 16:00 16:53 WBC 7.1 D RBC 4.45 Hgb 13.7 Hct 42.2 MCV 94.8 MCH 30.8 MCHC 32.5 RDW 13.6 Plt Count 361 MPV 9.8 Gran % 71.6 H Lymph % (Auto) 20.3 L [place] % (Auto) 6.1 H Eos % (Auto) 1.4 L Baso % (Auto) 0.6 Gran # 5.09 Lymph # 1.4 [place] # 0.4 Eos # 0.1 Baso # 0.04 Sodium 140 Potassium 5.1 H Chloride 103 Carbon Dioxide 26 Anion Gap 16 BUN 14 Creatinine 0.8 Est GFR ( Amer) > 60 Est GFR (Non-Af Amer) > 60 Random Glucose 131 H Calcium 10.5 Total Bilirubin 0.5 AST 24 ALT 35 Alkaline Phosphatase 48 Total Protein 7.1 Albumin 4.3 Globulin 2.8 Albumin/Globulin Ratio 1.6 Urine Color Yellow Urine Appearance Sl cloudy Urine pH 5.5 Ur Specific [place] >= 1.030 Urine Protein 30 H Urine Glucose (UA) Negative Urine Ketones Trace H Urine Blood Large H Urine Nitrate Negative Urine Bilirubin Negative Urine Urobilinogen 0.2 Ur Leukocyte Esterase Negative Urine RBC Tntc Urine WBC 0 - 2 Ur Epithelial Cells 0 - 2 05/06/17 19:20 WBC RBC Hgb Hct MCV MCH MCHC RDW Plt Count MPV Gran % Lymph % (Auto) [place] % (Auto) Eos % (Auto) Baso % (Auto) Gran # Lymph # [place] # Eos # Baso # Sodium Potassium 5.1 H Chloride Carbon Dioxide Anion Gap BUN Creatinine Est GFR ( Amer) Est GFR (Non-Af Amer) Random Glucose Calcium Total Bilirubin AST ALT Alkaline Phosphatase Total Protein Albumin Globulin Albumin/Globulin Ratio Urine Color Urine Appearance Urine pH Ur Specific [place] Urine Protein Urine Glucose (UA) Urine Ketones Urine Blood Urine Nitrate Urine Bilirubin Urine Urobilinogen Ur Leukocyte Esterase Urine RBC Urine WBC Ur Epithelial Cells Assessment & Plan - Assessment and Plan (Free Text) Assessment: Patient is a 72 yo female who presents to ED with complaints of right sided flank pain. Patient has a past medical history of NIDDM, hypertension, colitis, and Nephrolithiasis. Plan: Flank pain secondary to 4.3 mm obstructing right distal ureteral stone -Urology consulted; recommendations appreciated -Pain control with Toradol and Reglan; morphine causes severe nausea in patient -Will use Reglan for antiemetic -IVF@100 -Continue with Flomax Vertigo -continue meclizine Hypertension -continue to monitor, currently not hypertensive NIDDM -ISS-low -fingerstick q6h -Will hold metformin for now GI/DVT prophylaxis -SCDs/Protonix <Tiago Rios N - Last Filed: 05/07/17 06:30> Results - Vital Signs Recent Vital Signs: Last Vital Signs Temp 97.8 F 05/07/17 01:27 Pulse 68 05/07/17 01:27 Resp 18 05/07/17 01:27 BP 130/66 05/07/17 01:27 Pulse Ox 97 05/06/17 22:33 - Labs Result Diagrams: 05/06/17 16:00 05/06/17 19:20
[2017-05-06] MEDS ORDERED: Sodium Chloride 0.9% 1,000 ML IV SCH (23:15)
[2017-05-07 03:03] VITALS: BMI 20.5
[2017-05-07] MEDS ORDERED: Pneumococcal 23-Valent Vaccine IM ONE (03:03)
--- NOTE | 2017-05-07 07:11 | CP.PCM.PN ---
Subjective - Date & Time of Evaluation Date of Evaluation: 05/07/17 Time of Evaluation: 07:11 - Subjective Subjective: Rosamaria Jackson, PGY1, Medicine Progress Note for Dr Olmos: Objective - Vital Signs/Intake and Output Vital Signs (last 24 hours): Temp Pulse Resp BP Pulse Ox 97.8 F 68 18 130/66 97 05/07/17 01:27 05/07/17 01:27 05/07/17 01:27 05/07/17 01:27 05/06/17 22:33 Intake and Output: 05/07/17 05/07/17 06:59 18:59 Intake Total 0 Balance 0 - Medications Medications: Current Medications Diazepam (Valium) 5 mg PO HS PRN; Protocol PRN Reason: Sleep Sodium Chloride (Sodium Chloride 0.9%) 1,000 mls @ 100 mls/hr IV .Q10H [facility] Last Admin: 05/06/17 23:56 Dose: 100 mls/hr Insulin Human Regular (Humulin R Low) 0 units SC ACHS ADRIAN PRN Reason: Protocol Ketorolac Tromethamine (Toradol) 15 mg IVP Q6H PRN PRN Reason: Pain, severe (8-10) Stop: 05/08/17 22:01 Last Admin: 05/06/17 23:57 Dose: 15 mg Meclizine HCl (Antivert) 25 mg PO TID PRN PRN Reason: Vertigo Metoclopramide HCl (Reglan) 10 mg IVP Q6H PRN PRN Reason: Nausea/Vomiting Metoprolol Succinate (Toprol Xl) 25 mg PO QPM [facility] Pantoprazole Sodium (Protonix Inj) 40 mg IVP DAILY ADRIAN Tamsulosin HCl (Flomax) 0.4 mg PO DAILY ADRIAN
[2017-05-07 07:25] LABS: BASO # 0.03 K/mm3 (0.0-2.0); BASO % 0.6 % (0.0-3.0); EOS # 0.2 (0.0-0.7); EOS % 3.3 % (1.5-5.0); GRAN # 2.52 (1.4-6.5); GRAN % 46.4 % (50.0-68.0); HEMOGLOBIN 11.1 g/dL (12.0-16.0); LYMPH # 2.2 (1.2-3.4); LYMPH % 40.1 % (22.0-35.0); MEAN CORPUSCULAR HEMOGLOBIN 30.7 pg (25.0-35.0); MEAN CORPUSCULAR HGB CONC 32.3 g/dl (31.0-37.0); MEAN PLATELET VOLUME 9.6 fl (7.0-11.0); MONO # 0.5 (0.1-0.6); MONO % 9.6 % (1.0-6.0); RBC 3.62 10^6/uL (3.5-6.1); RED CELL DISTRIBUTION WIDTH 13.7 % (11.5-14.5); WHITE BLOOD COUNT 5.4 10^3/ul (4.5-11.0)
[2017-05-07] MEDS ORDERED: Insulin Reg-LOW-Coverage SC SCH (07:30)
[2017-05-07 07:47] LABS: MAGNESIUM 1.9 mg/dL (1.7-2.2)
--- NOTE | 2017-05-07 10:10 | RAD ---
HISTORY: prior to SDS procedure COMPARISON: 04/13/2014. FINDINGS: LUNGS: The lungs are hyperinflated and there is peribronchial thickening with chronic changes in both lungs. No focal consolidation. PLEURA: No significant pleural effusion identified, no pneumothorax apparent. CARDIOVASCULAR: Normal. OSSEOUS STRUCTURES: No significant abnormalities. VISUALIZED UPPER ABDOMEN: Normal. OTHER FINDINGS: None. IMPRESSION: No active pulmonary disease. COPD.
[2017-05-07] MEDS ORDERED: Propofol 10 mg/ml Inj (20 ML) ONE (10:25)
[2017-05-07] MEDS ORDERED: Lidocaine 1% Inj (20ml) ONE (10:25)
[2017-05-07] MEDS ORDERED: cefTRIAXone (Rocephin) 1 gm Inj ONE (10:49)
[2017-05-07] MEDS ORDERED: Iohexol 240 (50 ml) ONE (10:49)
[2017-05-07] MEDS ORDERED: ePHEDrine 50 mg/ml Inj ONE (11:03)
[2017-05-07] MEDS ORDERED: HYDROmorphone 0.5 mg/0.5 ml ISec IVP PRN (11:43)
[2017-05-07] MEDS ORDERED: Lactated Ringer's 1,000 ML IV SCH (11:45)
[2017-05-07 11:56] VITALS: TEMP 98.3; O2SAT 98
[2017-05-07 12:16] VITALS: BP 118/59; PULSE 80; RESP 17
--- NOTE | 2017-05-07 14:07 | OP ---
PROCEDURE DATE: 05/07/2017 PREOPERATIVE DIAGNOSIS: Right ureteral calculus, renal colic. POSTOPERATIVE DIAGNOSIS: Right ureteral calculus, renal colic. PROCEDURE: Cystoscopy, right retrograde pyelogram, right ureteroscopy, basket extraction of right ureteral calculus, and insertion of a right ureteral stent. ATTENDING SURGEON: Temo Pinedo MD ANESTHESIA: General. SPECIMEN: Ureteral calculus, sent to Pathology. DRAINS: A 6 x 24 right ureteral stent. COMPLICATIONS: There were none. OPERATIVE FINDINGS: After informed consent was obtained, the patient was taken to the operative room, placed on the operating room table. Anesthesia was administered. The patient was placed in dorsal lithotomy position, and prepped and draped in usual sterile fashion. A 21-Chadian cystoscope was passed into the patient's bladder and a full survey inspection was performed. There were no stones, tumors, or foreign bodies of the bladder noted. Both ureteral orifices were visualized. The left ureteral orifice appeared within normal limits. The right ureteral orifice appeared somewhat heaped up. At this point, an open-ended ureteral catheter was advanced through the cystoscope and guided into the right ureteral orifice. Contrast was then instilled into the system. There was hydroureteronephrosis down to the distal ureter. There was a small filling defect seen, this was not seen on plain fluoroscopy as a calcification. At this point, the ureteral orifice appeared somewhat tightened and a guidewire was then passed through the open-ended ureteral catheter. It was guided up the ureter under fluoroscopic guidance until coiled in the upper collecting system. The open-ended ureteral catheter was then removed and a large dual-lumen catheter was then passed. The dual-lumen catheter was held in place for about a minute and then removed. The bladder was then drained and the cystoscope was removed. A 7.5 Chadian semi-rigid ureteroscope was then passed under direct vision into the bladder by following the guidewire. The ureteroscope was able to be passed into the ureter and advanced proximally. In the distal ureter, approximately 4 mm yellowish calculus was encountered. Decision was made at this point to extract the calculus with the stone basket. Stone basket was obtained and passed under direct vision into the ureter. Stone was able to be ensnared and withdrawn with the ureteroscope. The stone was sent to Pathology as specimen. The ureteroscope was then re-passed under direct vision into the bladder and then guided into the ureter. The ureteroscope was then able to be passed without any difficulty up into the renal pelvis. There were no other stones or abnormalities seen. At this point, the ureteroscope was then withdrawn. The cystoscope was then re-passed while back loading the guidewire. A 6 x 24 stent was obtained, it was passed through the cystoscope over the wire and into the right ureter. The stent was advanced proximally under direct and fluoroscopic guidance until it was in at the appropriate position. When in proper position, the guidewire was removed. A coil was seen in the renal pelvis on fluoroscopy. A coil was seen in bladder on cystoscopy. At this point, the procedure was completed, the bladder was drained and the cystoscope was removed. The patient tolerated the procedure well. She was taken to the recovery room, awake in stable condition. Temo Pinedo MD
--- NOTE | 2017-05-07 14:33 | CP.PCM.DIS ---
<Katya Gordillo - Last Filed: 05/07/17 15:10> Provider - Provider Date of Admission: 05/06/17 21:03 Attending physician: Gia Olmos MD Primary care physician: Mik Leroy MD Time Spent in preparation of Discharge (in minutes): 40 Hospital Course - Lab Results Lab Results: Most Recent Lab Values WBC 5.4 10^3/ul (4.5-11.0) D 05/07/17 07:00 RBC 3.62 10^6/uL (3.5-6.1) 05/07/17 07:00 Hgb 11.1 g/dL (12.0-16.0) L D 05/07/17 07:00 Hct 34.4 % (36.0-48.0) L 05/07/17 07:00 MCV 95.0 fl (80.0-105.0) 05/07/17 07:00 MCH 30.7 pg (25.0-35.0) 05/07/17 07:00 MCHC 32.3 g/dl (31.0-37.0) 05/07/17 07:00 RDW 13.7 % (11.5-14.5) 05/07/17 07:00 Plt Count 284 10^3/uL (120.0-450.0) 05/07/17 07:00 MPV 9.6 fl (7.0-11.0) 05/07/17 07:00 Gran % 46.4 % (50.0-68.0) L 05/07/17 07:00 Lymph % (Auto) 40.1 % (22.0-35.0) H 05/07/17 07:00 [place] % (Auto) 9.6 % (1.0-6.0) H 05/07/17 07:00 Eos % (Auto) 3.3 % (1.5-5.0) 05/07/17 07:00 Baso % (Auto) 0.6 % (0.0-3.0) 05/07/17 07:00 Gran # 2.52 (1.4-6.5) 05/07/17 07:00 Lymph # 2.2 (1.2-3.4) 05/07/17 07:00 [place] # 0.5 (0.1-0.6) 05/07/17 07:00 Eos # 0.2 (0.0-0.7) 05/07/17 07:00 Baso # 0.03 K/mm3 (0.0-2.0) 05/07/17 07:00 Sodium 142 mmol/L (132-148) 05/07/17 07:00 Potassium 4.2 mmol/L (3.6-5.0) 05/07/17 07:00 Chloride 110 mmol/L (98-107) H 05/07/17 07:00 Carbon Dioxide 29 mmol/L (21-33) 05/07/17 07:00 Anion Gap 8 (10-20) L 05/07/17 07:00 BUN 15 mg/dL (7-21) 05/07/17 07:00 Creatinine 1.1 mg/dl (0.7-1.2) 05/07/17 07:00 Est GFR ( Amer) 59 05/07/17 07:00 Est GFR (Non-Af Amer) 49 05/07/17 07:00 POC Glucose (mg/dL) 75 mg/dL (65-110) 05/07/17 07:25 Random Glucose 88 mg/dL (70-110) 05/07/17 07:00 Calcium 9.0 mg/dL (8.4-10.5) 05/07/17 07:00 Phosphorus 4.5 mg/dL (2.5-4.5) 05/07/17 07:00 Magnesium 1.9 mg/dL (1.7-2.2) 05/07/17 07:00 Total Bilirubin 0.5 mg/dL (0.2-1.3) 05/06/17 16:00 AST 24 U/L (14-36) 05/06/17 16:00 ALT 35 U/L (7-56) 05/06/17 16:00 Alkaline Phosphatase 48 U/L (38-126) 05/06/17 16:00 Total Protein 7.1 g/dL (5.8-8.3) 05/06/17 16:00 Albumin 4.3 g/dL (3.0-4.8) 05/06/17 16:00 Globulin 2.8 gm/dL 05/06/17 16:00 Albumin/Globulin Ratio 1.6 (1.1-1.8) 05/06/17 16:00 Urine Color Yellow (YELLOW) 05/06/17 16:53 Urine Appearance Sl cloudy (CLEAR) 05/06/17 16:53 Urine pH 5.5 (4.7-8.0) 05/06/17 16:53 Ur Specific [place] >= 1.030 (1.005-1.035) 05/06/17 16:53 Urine Protein 30 mg/dL (<30 mg/dL) H 05/06/17 16:53 Urine Glucose (UA) Negative mg/dL (NEGATIVE) 05/06/17 16:53 Urine Ketones Trace mg/dL (NEGATIVE) H 05/06/17 16:53 Urine Blood Large (NEGATIVE) H 05/06/17 16:53 Urine Nitrate Negative (NEGATIVE) 05/06/17 16:53 Urine Bilirubin Negative (NEGATIVE) 05/06/17 16:53 Urine Urobilinogen 0.2 E.U./dL (<1 E.U./dL) 05/06/17 16:53 Ur Leukocyte Esterase Negative Mitch/uL (NEGATIVE) 05/06/17 16:53 Urine RBC Tntc /hpf (0-2) 05/06/17 16:53 Urine WBC 0 - 2 /hpf (0-6) 05/06/17 16:53 Ur Epithelial Cells 0 - 2 /hpf (0-5) 05/06/17 16:53 - Hospital Course Hospital Course: 72 yo female with past medical history of NIDDM, hypertension, colitis, and Nephrolithiasis who presents to ED with complaints of right sided flank pain with associated nausea and diarrhea. CT of abd pelvis showed 4.3mm obstructing distal right uretheral stone. Urology was consulted. Patient underwent a cystoscopy, right retrograde pyelogram, right uretheroscopy, basket extraction of right uretheral calculus and insertion of right ureteral stent. Patiebt will be discharged with antibiotics and flomax. Patient is feeling better, able to tolerate diet. She is agreeable for discharge today. Discharge Exam - Head Exam Head Exam: ATRAUMATIC, NORMAL INSPECTION, NORMOCEPHALIC - Eye Exam Eye Exam: EOMI, Normal appearance - ENT Exam ENT Exam: Mucous Membranes Moist - Respiratory Exam Respiratory Exam: Clear to PA & Lateral, NORMAL BREATHING PATTERN, UNREMARKABLE. absent: Rales, Rhonchi, Wheezes, Respiratory Distress - Cardiovascular Exam Cardiovascular Exam: REGULAR RHYTHM, +S1, +S2. absent: Tachycardia, Systolic Murmur - GI/Abdominal Exam GI & Abdominal Exam: Normal Bowel Sounds, Unremarkable. absent: Distended, Firm , Soft, Tenderness - Extremities Exam Extremities exam: normal inspection - Neurological Exam Neurological exam: Alert, CN II-XII Intact, Oriented x3 - Skin Skin Exam: Dry, Intact, Normal Color, Warm Discharge Plan - Discharge Medications Prescriptions: Cefdinir [Omnicef] 300 mg PO BID #10 cap Tamsulosin [Flomax] 0.4 mg PO DAILY #15 cap - Follow Up Plan Condition: GOOD Disposition: HOME/ ROUTINE Instructions: Kidney Stones (DC), Cystoscopy (DC), Pain Management After Surgery (DC), Basic Carbohydrate Counting (DC) Additional Instructions: - 2 new prescriptions - follow up with Dr. Pinedo in 1 weeks - if new or worsening symptoms, return to nearest ED Referrals: Mik Leroy MD [Primary Care Provider] - <Gia Olmos - Last Filed: 05/07/17 18:26> Provider - Provider Date of Admission: 05/06/17 21:03 Attending physician: Gia Olmos MD Primary care physician: Mik Leroy MD Hospital Course - Lab Results Lab Results: Most Recent Lab Values WBC 5.4 10^3/ul (4.5-11.0) D 05/07/17 07:00 RBC 3.62 10^6/uL (3.5-6.1) 05/07/17 07:00 Hgb 11.1 g/dL (12.0-16.0) L D 05/07/17 07:00 Hct 34.4 % (36.0-48.0) L 05/07/17 07:00 MCV 95.0 fl (80.0-105.0) 05/07/17 07:00 MCH 30.7 pg (25.0-35.0) 05/07/17 07:00 MCHC 32.3 g/dl (31.0-37.0) 05/07/17 07:00 RDW 13.7 % (11.5-14.5) 05/07/17 07:00 Plt Count 284 10^3/uL (120.0-450.0) 05/07/17 07:00 MPV 9.6 fl (7.0-11.0) 05/07/17 07:00 Gran % 46.4 % (50.0-68.0) L 05/07/17 07:00 Lymph % (Auto) 40.1 % (22.0-35.0) H 05/07/17 07:00 [place] % (Auto) 9.6 % (1.0-6.0) H 05/07/17 07:00 Eos % (Auto) 3.3 % (1.5-5.0) 05/07/17 07:00 Baso % (Auto) 0.6 % (0.0-3.0) 05/07/17 07:00 Gran # 2.52 (1.4-6.5) 05/07/17 07:00 Lymph # 2.2 (1.2-3.4) 05/07/17 07:00 [place] # 0.5 (0.1-0.6) 05/07/17 07:00 Eos # 0.2 (0.0-0.7) 05/07/17 07:00 Baso # 0.03 K/mm3 (0.0-2.0) 05/07/17 07:00 Sodium 142 mmol/L (132-148) 05/07/17 07:00 Potassium 4.2 mmol/L (3.6-5.0) 05/07/17 07:00 Chloride 110 mmol/L (98-107) H 05/07/17 07:00 Carbon Dioxide 29 mmol/L (21-33) 05/07/17 07:00 Anion Gap 8 (10-20) L 05/07/17 07:00 BUN 15 mg/dL (7-21) 05/07/17 07:00 Creatinine 1.1 mg/dl (0.7-1.2) 05/07/17 07:00 Est GFR ( Amer) 59 05/07/17 07:00 Est GFR (Non-Af Amer) 49 05/07/17 07:00 POC Glucose (mg/dL) 75 mg/dL (65-110) 05/07/17 07:25 Random Glucose 88 mg/dL (70-110) 05/07/17 07:00 Calcium 9.0 mg/dL (8.4-10.5) 05/07/17 07:00 Phosphorus 4.5 mg/dL (2.5-4.5) 05/07/17 07:00 Magnesium 1.9 mg/dL (1.7-2.2) 05/07/17 07:00 Total Bilirubin 0.5 mg/dL (0.2-1.3) 05/06/17 16:00 AST 24 U/L (14-36) 05/06/17 16:00 ALT 35 U/L (7-56) 05/06/17 16:00 Alkaline Phosphatase 48 U/L (38-126) 05/06/17 16:00 Total Protein 7.1 g/dL (5.8-8.3) 05/06/17 16:00 Albumin 4.3 g/dL (3.0-4.8) 05/06/17 16:00 Globulin 2.8 gm/dL 05/06/17 16:00 Albumin/Globulin Ratio 1.6 (1.1-1.8) 05/06/17 16:00 Urine Color Yellow (YELLOW) 05/06/17 16:53 Urine Appearance Sl cloudy (CLEAR) 05/06/17 16:53 Urine pH 5.5 (4.7-8.0) 05/06/17 16:53 Ur Specific [place] >= 1.030 (1.005-1.035) 05/06/17 16:53 Urine Protein 30 mg/dL (<30 mg/dL) H 05/06/17 16:53 Urine Glucose (UA) Negative mg/dL (NEGATIVE) 05/06/17 16:53 Urine Ketones Trace mg/dL (NEGATIVE) H 05/06/17 16:53 Urine Blood Large (NEGATIVE) H 05/06/17 16:53 Urine Nitrate Negative (NEGATIVE) 05/06/17 16:53 Urine Bilirubin Negative (NEGATIVE) 05/06/17 16:53 Urine Urobilinogen 0.2 E.U./dL (<1 E.U./dL) 05/06/17 16:53 Ur Leukocyte Esterase Negative Mitch/uL (NEGATIVE) 05/06/17 16:53 Urine RBC Tntc /hpf (0-2) 05/06/17 16:53 Urine WBC 0 - 2 /hpf (0-6) 05/06/17 16:53 Ur Epithelial Cells 0 - 2 /hpf (0-5) 05/06/17 16:53 Attending/Attestation - Attestation I have personally seen and examined this patient.: Yes I have fully participated in the care of the patient.: Yes I have reviewed all pertinent clinical information, including history, physical exam and plan: Yes Notes (Text): 05/07/17 18:23 Patient was seen and examined , discussed with medical terminologist.Laboratory date and consult note reviewed. Agreed with assessment and plan. Patient is stable after the procedure.Her flank pain has improved.She will be discharged home and will follow up with Urology and PCP. Management plan was discussed in detail with patient. Education was provided.
[2017-05-07] MEDS ORDERED: Metoprolol Succinate 25 mg XL Tab PO SCH (18:00)
--- NOTE | 2017-05-08 16:09 | CARD ---
APPROVED REPORT EKG Measurement Heart [id number] CT [id number] <Conclusion> Normal sinus rhythm Normal ECG
--- NOTE | 2017-05-10 14:30 | RAD ---
PROCEDURE: Fluoroscopy up to 1 hour HISTORY: RETROGRADE / BASKET EXTRACTION / STENT INSERTION (RIGHT) COMPARISON: TECHNIQUE: Fluoroscopy was provided in the operating room. 76.5 seconds of fluoro time. 18 images were submitted FINDINGS: The study shows passage of a wire and instrument into the right ureter and placement of a right ureteral stent. The study was performed by Dr. Pinedo IMPRESSION: As above
== END 2017-05-07 16:56 | disposition home or self-care (01) ==
LOC: ED 14:40 → ERH 21:03 → 5RSO 22:43
PROVIDERS: ADMIT Internal Medicine; ATTEND Internal Medicine
DX: N13.2 Hydronephrosis with renal and ureteral calculous obstruction (principal); I12.9 Hypertensive chronic kidney disease with stage 1 through stage 4 chronic kidney disease, or unspecified chronic kidney disease; E11.22 Type 2 diabetes mellitus with diabetic chronic kidney disease; N18.9 Chronic kidney disease, unspecified; I25.10 Atherosclerotic heart disease of native coronary artery without angina pectoris; K21.9 Gastro-esophageal reflux disease without esophagitis; J43.9 Emphysema, unspecified; F17.290 Nicotine dependence, other tobacco product, uncomplicated; R42 Dizziness and giddiness; Z79.84 Long term (current) use of oral hypoglycemic drugs; Z79.82 Long term (current) use of aspirin; Z88.2 Allergy status to sulfonamides
CPT/HCPCS: 36415; 52332; 52352; 71045; 74176; 80048; 80053; 81001; 82948; 83735; 84100; 84132; 85025; 87040; 87086; 88300; 93005; 96374; 96375; 96376; 99285; C1758; C1769; C2625; C9113; G0378; J0696; J1885; J2001; J2270; J2405; J2704; J7040; Q9966

== ENCOUNTER 2018-03-23 08:49 | Day surgery (SDC) | payer MEDICARE, BC ==
[2018-03-23 09:24] VITALS: BMI 20.9
[2018-03-23] MEDS ORDERED: Propofol 10 mg/ml Inj (20 ML) ONE (10:09)
[2018-03-23] MEDS ORDERED: Sodium Chloride 0.9% 1,000 ML IV SCH (10:45)
[2018-03-23 11:39] VITALS: TEMP 97.6; O2SAT 97
[2018-03-23 11:43] VITALS: BP 103/65; PULSE 70; RESP 18
== END 2018-03-23 12:10 | disposition home or self-care (01) ==
LOC: ENDO 08:49
PROVIDERS: ATTEND Specialist
DX: C88.4 Extranodal marginal zone B-cell lymphoma of mucosa-associated lymphoid tissue [MALT-lymphoma] (principal); K22.2 Esophageal obstruction; K44.9 Diaphragmatic hernia without obstruction or gangrene; K29.70 Gastritis, unspecified, without bleeding; K31.7 Polyp of stomach and duodenum; E11.9 Type 2 diabetes mellitus without complications; J44.9 Chronic obstructive pulmonary disease, unspecified; I10 Essential (primary) hypertension
CPT/HCPCS: 43239; 88305; 88312; 88342; J2405; J2704; J7030; J7040

== ENCOUNTER 2018-05-03 05:01 | Outpatient (CLI) | payer MEDICARE, BC | END 2018-05-03 05:02 | disposition home or self-care (01) | LOC: PET-BROA 05:01 | DX: C83.99 Non-follicular (diffuse) lymphoma, unspecified, extranodal and solid organ sites (principal) ==